=== PATIENT | female | born 1975 | race Caucasian/White ===

== ENCOUNTER 2017-11-21 10:21 | Outpatient (CLI) | payer OTHER | END 2017-11-21 13:00 | disposition home or self-care (01) | LOC: NUCLEAR 10:21 | DX: C10.8 Malignant neoplasm of overlapping sites of oropharynx (principal); C77.0 Secondary and unspecified malignant neoplasm of lymph nodes of head, face and neck | CPT/HCPCS: 78815; A9552 ==

== ENCOUNTER 2018-08-08 08:07 | Outpatient (CLI) | payer OTHER | END 2018-08-08 08:25 | disposition home or self-care (01) | LOC: NUCLEAR 08:07 | DX: C10.8 Malignant neoplasm of overlapping sites of oropharynx (principal) | CPT/HCPCS: 78816; A9552 ==

== ENCOUNTER 2019-02-06 09:12 | Outpatient (CLI) | payer OTHER | END 2019-02-06 09:19 | disposition home or self-care (01) | LOC: LAB 09:12 | DX: R97.0 Elevated carcinoembryonic antigen [CEA] (principal); C02.0 Malignant neoplasm of dorsal surface of tongue ==

== ENCOUNTER 2019-02-07 07:57 | Outpatient (CLI) | payer OTHER | END 2019-02-07 08:01 | disposition home or self-care (01) | LOC: TOM 07:57 | DX: C07 Malignant neoplasm of parotid gland (principal); N92.0 Excessive and frequent menstruation with regular cycle ==

== ENCOUNTER 2019-04-02 09:56 | Outpatient (CLI) | payer OTHER | END 2019-04-02 10:06 | disposition home or self-care (01) | LOC: LAB 09:56 | DX: C02.0 Malignant neoplasm of dorsal surface of tongue (principal); R97.0 Elevated carcinoembryonic antigen [CEA] ==

== ENCOUNTER 2019-04-02 12:22 | Outpatient (CLI) | payer OTHER | END 2019-04-02 12:38 | disposition home or self-care (01) | LOC: TOM 12:22 | DX: C02.0 Malignant neoplasm of dorsal surface of tongue (principal); C77.0 Secondary and unspecified malignant neoplasm of lymph nodes of head, face and neck; R91.1 Solitary pulmonary nodule; J98.4 Other disorders of lung ==

== ENCOUNTER 2019-10-01 09:39 | Outpatient (CLI) | payer OTHER | END 2019-10-01 09:59 | disposition home or self-care (01) | LOC: SONOGRAMA 09:39 | DX: N83.291 Other ovarian cyst, right side (principal); J20.8 Acute bronchitis due to other specified organisms; E04.1 Nontoxic single thyroid nodule ==

== ENCOUNTER 2019-10-23 09:13 | Outpatient (CLI) | payer OTHER | END 2019-10-23 09:25 | disposition home or self-care (01) | LOC: NUCLEAR 09:13 | DX: C01 Malignant neoplasm of base of tongue (principal) | CPT/HCPCS: 78816; A9552 ==

== ENCOUNTER 2021-05-12 07:16 | Outpatient (CLI) | payer OTHER | END 2021-05-12 07:23 | disposition home or self-care (01) | LOC: NUCLEAR 07:16 | PROVIDERS: ATTEND Surgery | DX: C10.8 Malignant neoplasm of overlapping sites of oropharynx (principal) | CPT/HCPCS: 78816; A9552 ==